=== PATIENT | male | born 1935 | race African-American/Black ===

== ENCOUNTER → 2017-07-14 | Outpatient (CLI) | payer MEDICARE, MEDICAID ==
[~2017-07-14] MED LIST: REGADENOSON 0.4 MG/5 ML IV ONE
== END | disposition home or self-care (01) ==
LOC: NM 07:56
PROVIDERS: ATTEND Internal Medicine Cardiovascular Disease
DX: I20.9 Angina pectoris, unspecified (principal); I10 Essential (primary) hypertension; R94.31 Abnormal electrocardiogram [ECG] [EKG]
CPT/HCPCS: 78452; 93017; A9500; J2785

== ENCOUNTER 2017-09-09 05:36 | Day surgery (SDC) | payer MEDICARE, MEDICAID ==
[~2017-09-09] VITALS: Ht 167.6 cm; Wt 99.8 kg
[~2017-09-09 05:36] MED LIST changes: +ALLO300T74 PO; +ATOR40TA70 PO; +CLOP75TA16 PO; +FURO80TA87 PO; +LOT205 PO; +METO200T5 PO; -REGADENOSON 0.4 MG/5 ML IV ONE; +TOPI25TA48 PO
[2017-09-09] MEDS ORDERED: LACTATED RINGERS 1,000 ML IV SCH (06:40)
[2017-09-09 06:56] LABS: CLARITY URINE CLEAR (CLEAR); COLOR URINE YELLOW (YELLOW); KETONES URINE NEGATIVE (NEGATIVE); LEUKOCYTE ESTERASE URINE NEGATIVE (NEGATIVE); NITRITE URINE NEGATIVE (NEGATIVE); OCCULT BLOOD URINE NEGATIVE (NEGATIVE); PROTEIN URINE 1+ (NEGATIVE); SPECIFIC GRAVITY URINE 1.013 (1.005-1.030); UROBILINOGEN URINE 0.2 E.U./dL (0.2-1.0)
[2017-09-09 06:57] LABS: BASOPHILS % 0.7 % (0.0-2.0); EOSINOPHILS % 2.3 % (0.0-5.0); HEMATOCRIT. 38.8 % (42.0-52.0); HEMOGLOBIN. 12.7 g/dL (14.0-18.0); LYMPHOCYTES % 15.4 % (20.0-50.0); MEAN CORPUSCULAR HEMOGLOBIN 28.8 pg (28.0-32.0); MEAN CORPUSCULAR VOLUME 88.3 fL (80.0-94.0); MEAN PLATELET VOLUME 10.6 fl (7.4-10.4); MONOCYTES % 9.3 % (2.0-8.0); NEUTROPHILS % 72.3 % (40.0-76.0); PLATELET 130 x1000/uL (130-400); RED CELL DISTRIBUTION WIDTH 15.6 % (11.6-14.6)
[2017-09-09 06:59] LABS: PARTIAL THROMBOPLASTIN TIME 30.9 sec (23.4-31.0); PROTHROMBIN TIME 10.9 sec (9.4-11.6)
[2017-09-09 07:05] LABS: CHLORIDE 111 mEq/L (98-107)
[2017-09-09] MEDS ORDERED: BUPIVACAINE HCL/PF 0.25% (2.5MG/ML) 10ML ONE (07:07)
[2017-09-09] MEDS ORDERED: BACITRACIN ZINC 15GM TUBE TOP ONE (07:07)
[2017-09-09 07:11] LABS: CARBON DIOXIDE 28 mEq/L (21-32)
[2017-09-09] MEDS ORDERED: ONDANSETRON HCL 4MG/2ML VIAL IV PRN (08:00)
[2017-09-09] MEDS ORDERED: MEPERIDINE HCL/PF 25MG/ML CPJ IV PRN (08:00)
[2017-09-09] MEDS ORDERED: GLYCOPYRROLATE 0.2 MG/ML 2ML VIAL ONE (08:18)
== END 2017-09-09 09:20 | disposition home or self-care (01) ==
LOC: OR 05:36
PROVIDERS: ATTEND Urology
DX: N47.1 Phimosis (principal); Z53.8 Procedure and treatment not carried out for other reasons; M10.9 Gout, unspecified; I10 Essential (primary) hypertension; Z79.01 Long term (current) use of anticoagulants; Z79.899 Other long term (current) drug therapy; E78.4 Other hyperlipidemia
CPT/HCPCS: 36415; 54161; 71045; 80048; 81001; 85025; 85610; 85730; 93005; J3490; J7120

== ENCOUNTER 2018-04-05 05:27 | Day surgery (SDC) | payer MEDICARE, MEDICAID ==
[~2018-04-05] VITALS: Ht 167.6 cm; Wt 99.8 kg
[~2018-04-05 05:27] MED LIST changes: +METO200T48 PO; -METO200T5 PO
[2018-04-05] MEDS ORDERED: LACTATED RINGERS 1,000 ML IV SCH (05:30)
[2018-04-05 06:52] LABS: BASOPHILS % 0.5 % (0.0-2.0); EOSINOPHILS % 3.5 % (0.0-5.0); HEMATOCRIT. 40.4 % (42.0-52.0); HEMOGLOBIN. 13.4 g/dL (14.0-18.0); MEAN CORPUSCULAR VOLUME 87.5 fL (80.0-94.0); MEAN PLATELET VOLUME 10.8 fl (7.4-10.4); MONOCYTES % 11.7 % (2.0-8.0); NEUTROPHILS % 64.3 % (40.0-76.0); PLATELET 129 x1000/uL (130-400); RED BLOOD CELL COUNT 4.61 mill/uL (4.7-6.1); RED CELL DISTRIBUTION WIDTH 15.4 % (11.6-14.6)
[2018-04-05 06:54] LABS: CHLORIDE 113 mEq/L (98-107)
[2018-04-05] MEDS ORDERED: BACITRACIN ZINC 15GM TUBE TOP ONE (07:10)
[2018-04-05] MEDS ORDERED: BUPIVACAINE HCL/PF 0.5% (5MG/ML) 10ML ONE (07:10)
[2018-04-05] MEDS ORDERED: EPINEPHRINE 0.1MG/ML (1:10,000) 10ML SYR ONE (07:38)
[2018-04-05] MEDS ORDERED: SODIUM CHLORIDE 0.9% 1,000 ML IV ONE (08:24)
[2018-04-05] MEDS ORDERED: HYDROMORPHONE HCL/PF 2MG/ML CPJ IV PRN (08:30)
[2018-04-05] MEDS ORDERED: ONDANSETRON HCL 4MG/2ML VIAL IV PRN (08:30)
[2018-04-05] MEDS ORDERED: MEPERIDINE HCL/PF 25MG/ML CPJ IV PRN (08:30)
[2018-04-05] MEDS ORDERED: IBUPROFEN 600MG TABLET PO NR (08:30)
[2018-04-05] MEDS ORDERED: ACETAMINOPHEN WITH CODEINE 300/30MG TABLET PO PRN (09:00)
== END 2018-04-05 10:00 | disposition home or self-care (01) ==
LOC: OR 05:27
PROVIDERS: ATTEND Urology
DX: N47.1 Phimosis (principal); I10 Essential (primary) hypertension; E78.5 Hyperlipidemia, unspecified; M10.9 Gout, unspecified; Z79.01 Long term (current) use of anticoagulants; Z79.899 Other long term (current) drug therapy; Z72.89 Other problems related to lifestyle
CPT/HCPCS: 36415; 54161; 80048; 85025; J0330; J2250; J2405; J2710; J2765; J3010; J3490; J7030; J2704